=== PATIENT | male | born 1950 | race Caucasian/White ===

== ENCOUNTER 2020-12-03 06:43 | Outpatient (CLI) | payer MEDICARE ==
[2020-12-03] MEDS ORDERED: REGADENOSON 0.4 MG/5 ML SYRINGE ONE (06:59)
== END 2020-12-03 23:59 | disposition home or self-care (01) ==
LOC: CFH 06:43
PROVIDERS: ATTEND Internal Medicine Cardiovascular Disease
DX: I08.8 Other rheumatic multiple valve diseases (principal); I10 Essential (primary) hypertension; I25.10 Atherosclerotic heart disease of native coronary artery without angina pectoris
CPT/HCPCS: 78452; 93017; 93306; A9502; J2785